=== PATIENT | female | born 1950 | race Caucasian/White ===

== ENCOUNTER 2018-03-08 23:36 | Observation (INO) | payer OTHER ==
[2018-03-09] MEDS ORDERED: ONDANSETRON 4 MG/2 ML VIAL ONE (00:04)
[2018-03-09] MEDS ORDERED: NS 1,000 ML IV ONE (00:09)
[2018-03-09] MEDS ORDERED: ONDANSETRON 4 MG/2 ML VIAL IVP ONE (00:09)
[2018-03-09 00:17] LABS: PLATELET COUNT 249 10^3/uL (150-400)
[2018-03-09] MEDS ORDERED: KETOROLAC 15 MG/1 ML SDV IVP ONE (00:19)
[2018-03-09] MEDS ORDERED: FAMOTIDINE 20 MG/NACL 50 ML IV ONE (00:19)
--- NOTE | 2018-03-09 00:26 | EDPHY ---
H & P Stated Complaint: under R breast pain Time Seen by Provider: 03/08/18 23:46 HPI/ROS: HPI The patient presents with epigastric and right-sided upper abdominal pain which has been present for the last 1 hr and began after trying to sleep. The pain is sharp and radiates toward her back on the right-hand side. She had 1 episode of vomiting in the waiting room. Her pain has been constant and is moderate in severity. She has had intermittent episodes of heartburn though this feels more severe and different.. REVIEW OF SYSTEMS 10 systems were reviewed and negative with the exception of the elements mentioned in the history of present illness. PMHx: History of Alzheimer's dementia, status post hysterectomy Soc Hx: Here with her partner PHYSICAL General Appearance: Alert, no distress Eyes: Pupils equal and round no pallor or injection ENT, Mouth: Mucous membranes moist Respiratory: There are no retractions, lungs are clear to auscultation Cardiovascular: Regular rate and rhythm Gastrointestinal: Abdomen is soft and tender in the epigastrium without any rebound or guarding Neurological: A&O, moves all extremities Skin: Warm and dry, no rashes Musculoskeletal: Neck is supple non tender Extremities: symmetrical, full range of motion Psychiatric: Patient is oriented X 3, there is no agitation Source: Patient Exam Limitations: No limitations - Personal History Current Tetanus/Diphtheria Vaccine: Unsure Current Tetanus Diphtheria and Acellular Pertussis (TDAP): Unsure - Medical/Surgical History Hx Asthma: No Hx Chronic Respiratory Disease: No Hx Diabetes: No Hx Cardiac Disease: No Hx Renal Disease: No Hx Cirrhosis: No Hx Alcoholism: No Hx HIV/AIDS: No Hx Splenectomy or Spleen Trauma: No Other PMH: hysterectomy, abd surgeries for CA, memory loss, hypothyroid - Social History Smoking Status: Former smoker Constitutional: Initial Vital Signs Temperature (C) 37 C 03/08/18 23:52 Heart Rate 63 03/08/18 23:52 Respiratory Rate 16 03/08/18 23:52 Blood Pressure 118/45 L 03/08/18 23:52 O2 Sat (%) 98 03/08/18 23:52 O2 Delivery Mode Room Air Allergies/Adverse Reactions: Penicillins Allergy (Unknown, Verified 12/27/14 21:09) Edema of Extremities Home Medications: Medication Instructions Recorded [place] Thyroid 60 MG (RX) 12/29/14 Medical Decision Making - Diagnostics Imaging Results: Ultrasound right upper quadrant demonstrates 2 gallstones in the gallbladder neck with gallbladder wall thickening and sonographic Escalante's, discussed with Dr. Colon of Radiology. Imaging: Discussed imaging studies w/ charcoal unloader Radiologist, I viewed and interpreted images myself Differential Diagnosis: 67-year-old female presents with epigastric abdominal pain which radiates to her right upper quadrant and right back associated with nausea and vomiting. Differential diagnosis includes biliary colic, cholecystitis, gastritis. In the emergency department, labs were checked which were relatively unremarkable except for slightly elevated lipase. Patient had ongoing symptoms while here. She had a right upper quadrant ultrasound which did demonstrate gallstones in her gallbladder neck with dilated gallbladder and gallbladder wall thickening with sonographic Escalante's all concerning for early cholecystitis. I have ordered antibiotics. I have discussed the case with Dr. AMINTA Aragon the on-call surgeon who will admit the patient. I have updated the patient and her partner on the plan. - Data Points Laboratory Results: Laboratory Results 03/09/18 00:04 03/09/18 00:04 03/09/18 03/09/18 00:04 00:04 WBC 9.14 10^3/uL 10^3/uL (3.80-9.50) RBC 4.75 10^6/uL 10^6/uL (4.18-5.33) Hgb 14.2 g/dL g/dL (12.6-16.3) Hct 40.9 % % (38.0-47.0) MCV 86.1 fL fL (81.5-99.8) MCH 29.9 pg pg (27.9-34.1) MCHC 34.7 g/dL g/dL (32.4-36.7) RDW 12.6 % % (11.5-15.2) Plt Count 249 10^3/uL 10^3/uL (150-400) MPV 9.1 fL fL (8.7-11.7) Neut % (Auto) 70.0 % % (39.3-74.2) Lymph % (Auto) 20.5 % % (15.0-45.0) [place] % (Auto) 8.5 % % (4.5-13.0) Eos % (Auto) 0.5 % L % (0.6-7.6) Baso % (Auto) 0.3 % % (0.3-1.7) Nucleat RBC Rel Count 0.0 % % (0.0-0.2) Absolute Neuts (auto) 6.39 10^3/uL 10^3/uL (1.70-6.50) Absolute Lymphs (auto) 1.87 10^3/uL 10^3/uL (1.00-3.00) Absolute Monos (auto) 0.78 10^3/uL 10^3/uL (0.30-0.80) Absolute Eos (auto) 0.05 10^3/uL 10^3/uL (0.03-0.40) Absolute Basos (auto) 0.03 10^3/uL 10^3/uL (0.02-0.10) Absolute Nucleated RBC 0.00 10^3/uL 10^3/uL (0-0.01) Immature Gran % 0.2 % % (0.0-1.1) Immature Gran # 0.02 10^3/uL 10^3/uL (0.00-0.10) Sodium 139 mEq/L mEq/L (135-145) Potassium 4.2 mEq/L mEq/L (3.3-5.0) Chloride 105 mEq/L mEq/L (97-110) Carbon Dioxide 26 mEq/l mEq/l (22-31) Anion Gap 8 mEq/L mEq/L (8-16) BUN 28 mg/dL H mg/dL (7-23) Creatinine 0.6 mg/dL mg/dL (0.6-1.0) Estimated GFR > 60 Glucose 131 mg/dL H mg/dL (70-100) Calcium 9.7 mg/dL mg/dL (8.5-10.4) Total Bilirubin 1.0 mg/dL mg/dL (0.1-1.4) Conjugated Bilirubin 0.1 mg/dL mg/dL (0.0-0.5) Unconjugated Bilirubin 0.9 mg/dL mg/dL (0.0-1.1) AST 23 IU/L IU/L (14-46) ALT 19 IU/L IU/L (9-52) Alkaline Phosphatase 93 IU/L IU/L (38-126) Total Protein 6.5 g/dL g/dL (6.3-8.2) Albumin 4.0 g/dL g/dL (3.5-5.0) Lipase 353 IU/L H IU/L (23-300) Medications Given: Potassium Chloride/Dextrose/Sod Cl (D5w 1/2 Ns W/ 20 Kcl/L) 1,000 mls @ 100 mls /hr IV CONT CANDY Stop: 09/05/18 05:59 Last Admin: 03/09/18 05:45 Dose: 1,000 mls Discontinued Medications Sodium Chloride (Ns) 1,000 mls @ 0 mls/hr IV EDNOW ONE; Wide Open PRN Reason: Protocol Stop: 03/09/18 00:10 Last Admin: 03/09/18 00:10 Dose: 1,000 mls Famotidine/Sodium Chloride (Pepcid 20 Mg (Premix)) 50 mls @ 200 mls/hr IV EDNOW ONE Stop: 03/09/18 00:33 Last Admin: 03/09/18 00:39 Dose: 50 mls Ceftriaxone Sodium/Dextrose (Rocephin 1 Gm (Premix)) 50 mls @ 100 mls/hr IV EDNOW ONE PRN Reason: Protocol Stop: 03/09/18 01:59 Last Admin: 03/09/18 01:54 Dose: 50 mls Metronidazole/Sodium Chloride (Flagyl 500 Mg (Premix)) 100 mls @ 100 mls/hr IV EDNOW ONE PRN Reason: Protocol Stop: 03/09/18 02:29 Last Admin: 03/09/18 02:03 Dose: 100 mls Ketorolac Tromethamine (Toradol) 15 mg IVP EDNOW ONE Stop: 03/09/18 00:20 Last Admin: 03/09/18 00:37 Dose: 15 mg Ondansetron HCl (Zofran) 4 mg IVP EDNOW ONE Stop: 03/09/18 00:10 Last Admin: 03/09/18 00:10 Dose: 4 mg Departure - Departure Disposition: [facility] Inpatient Acute Clinical Impression: Cholecystitis, acute, Elevated lipase Condition: Fair Referrals: NONE *PRIMARY CARE P,. [Primary Care Provider] - As per Instructions
[2018-03-09] MEDS ORDERED: HYDROmorphone HCL 0.5 MG/0.5 ML SYR IVP PRN (05:31)
[2018-03-09] MEDS ORDERED: ONDANSETRON 4 MG/2 ML VIAL IVP PRN ×3 (05:31→12:23)
[2018-03-09] MEDS ORDERED: D5W 1/2 NS W/ 20 KCl/L 1,000 ML IV SCH (06:00)
--- NOTE | 2018-03-09 07:09 | PDGENHP ---
History & Physical Chief Complaint: ruq pain History of Present Illness: female with ruq pain since last night/ no prior episodes/ lfts ok/ us shows stone impacted in neck of GB. admit for lap reza Pertinent Past, Social, Family History: phx: hysterectomy, early alsheimers, hypothyroid. meds thyroid, alsheimer med. all ? pcn. ros - 10 pt review. fam hx noncontributory Relevant Physical Exam: gen healthy 67 female in no acute distress, afebrile. heent: nonicteric, perrla,no adenopathy, supple. chest clear. cor rr. abd: soft, tender ruq, no masses. extrem full rom and pulses. neuro physiologic, symmetric. psych alert, oriented, cooperative Cardiorespiratory Assessment: imp: acute cholecystitis. Plan: lap reza, risks and options fully discussed
[2018-03-09] MEDS ORDERED: LR 1,000 ML IV ONE ×2 (09:00→10:19)
[2018-03-09] MEDS ORDERED: BUPIVACAINE 0.5% 30 ML SDV ONE (10:08)
[2018-03-09] MEDS ORDERED: HEPARIN 1000 UNIT/1 ML MDV ONE ×2 (10:08→10:39)
[2018-03-09] MEDS ORDERED: ceFAZolin 1 GM/5 ML SYR ONE (10:09)
[2018-03-09] MEDS ORDERED: PROPOFOL 200 MG/20 ML VIAL ONE (10:43)
[2018-03-09] MEDS ORDERED: fentaNYL 250 MCG/5 ML INJ ONE (10:43)
[2018-03-09] MEDS ORDERED: DEXAMETHASONE 4 MG/ML VIAL ONE ×2 (10:45)
[2018-03-09] MEDS ORDERED: RANITIDINE 50 MG/2 ML VIAL ONE (10:45)
--- NOTE | 2018-03-09 10:45 | PDANEPAE ---
ANE Past Medical History - Pulmonary History Hx Oxygen in Use at Home: No Hx Sleep Apnea: No Sleep Apnea Screening Result - Last Documented: Negative - Endocrine History Hx Diabetes: No - Chronic Pain History Chronic Pain: No ANE Review of Systems Review of Systems: ANE Patient History - Allergies Allergies/Adverse Reactions: Penicillins Allergy (Unknown, Verified 12/27/14 21:09) Edema of Extremities - Home Medications Home Medications: Levothyroxine [Synthroid 50 mcg (*)] 50 mcg PO DAILY06 12/29/14 [Last Taken Unknown] Galantamine Hydrobromide [Razadyne 8 MG (*)] 8 mg PO BIDMEAL 03/09/18 [Last Taken Unknown] - NPO status NPO Since - Liquids (Date): 03/09/18 NPO Since - Liquids (Time): 00:00 NPO Since - Solids (Date): 03/09/18 NPO Since - Solids (Time): 00:00 - Smoking Hx Smoking Status: Former smoker ANE Labs/Vital Signs - Labs Result Diagrams: 03/09/18 00:04 03/09/18 00:04 - Vital Signs Blood Pressure: 107/62 Heart Rate: 56 Respiratory Rate: 17 O2 Sat (%): 95 Height: 170.18 cm Weight: 63.502 kg ANE Physical Exam - Airway Neck exam: decreased ROM Mallampati Score: Class 3 Mouth exam: poor dentition - Pulmonary Pulmonary: no respiratory distress - Cardiovascular Cardiovascular: regular rate and rhythym - ASA Status ASA Status: III ANE Anesthesia Plan Anesthesia Plan: general endotracheal anesthesia
[2018-03-09] MEDS ORDERED: ROCURONIUM 100 MG/10 ML VIAL ONE (10:46)
[2018-03-09] MEDS ORDERED: LIDOCAINE 2% 100 MG/5 ML SYR ONE (10:46)
[2018-03-09] MEDS ORDERED: fentaNYL 100 MCG/2 ML INJ IVP PRN ×2 (10:55→12:23)
[2018-03-09] MEDS ORDERED: NALOXONE HCL 0.4 MG/ML INJ IVP PRN ×2 (10:55→12:23)
[2018-03-09] MEDS ORDERED: ALBUTEROL 3 ML DEYVIAL IH PRN ×2 (10:55→12:23)
--- NOTE | 2018-03-09 11:30 | ASMTCASEMG ---
Living Arrangements What is your living Answers: Alone arrangement? Who do you live with? Type Of Residence What kind of residence do Answers: Apartment you live in? Discharge Plan Comments Coordination Status Comments Notes: Pt is a 67 y/o female admitted for cholecystitis. Pt went to surgery w/ Dr. Aragon to remove gallstones. OT has been ordered and pending recommendations. Needs are TBD at this time. CM to follow. Plan: TBD Date Signed: 03/09/2018 11:29 AM Electronically Signed By:MERCEDES Acosta
[2018-03-09] MEDS ORDERED: SUGAMMADEX SODIUM 200 MG/2 ML VIAL IVP ONE (11:53)
--- NOTE | 2018-03-09 12:15 | POSTOPPROG ---
Post Op Note Date of Operation: 03/09/18 Surgeon: Lon Aragon Lacrosse Coach: Regina Rivas Anesthesiologist: Tony Bahena Anesthesia: GET(General Endotracheal) Pre-op Diagnosis: cholelithiasis, cholecystitis Post-op Diagnosis: same Procedure: lap reza Findings: gallstones, distended GB, edema Inf/Abcess present in the surg proc area at time of surgery?: No EBL: 50-100 Complications: none Specimen(s): gallbladder to pathology
--- NOTE | 2018-03-09 12:22 | POSTANESTH ---
Post Anesthetic Evaluation Cardiovascular Status: Similar to Pre-Op Cond Respiratory Status: Similar to Pre-op Cond. Level of Consciousness/Mental Status: Mildly Sleepy, Arousable Pain Control: Adequate, Prn Tx Ordered Nausea/Vomiting Control: Adequate, Prn Tx Ordered Complications Possibly Related to Anesthesia: None Noted
[2018-03-09] MEDS ORDERED: fentaNYL 100 MCG/2 ML INJ ONE (12:28)
--- NOTE | 2018-03-09 12:56 | GOP ---
DATE OF OPERATION: 03/09/2018 SURGEON: Lon Aragon MD PREOPERATIVE DIAGNOSIS: Acute cholecystitis. POSTOPERATIVE DIAGNOSIS: Acute cholecystitis. PROCEDURE PERFORMED: Laparoscopic cholecystectomy. FINDINGS: Patient was found to have a hydrops of the gallbladder with a single stone impacted in the neck of the gallbladder. She had small ducts. There were no significant adhesions to the gallbladd er. The gallbladder wall was quite thick and inflamed and markedly distended. DESCRIPTION OF PROCEDURE: The patient was taken to the operating room where she received a satisfact ory general endotracheal anesthesia by Dr. Bahena. She was placed in the supine position, prepped and draped in usual sterile fashion. Epigastric incision was made. A Veress needle inserted. Pneum operitoneum was established. Trocar was introduced. Laparoscope introduced. Good visualization was obtained. Three other trocars were placed in the upper abdomen under direct vision. The gallbladde r was then elevated up. The cystic triangle was carefully exposed and dissected free. The cystic du ct and cystic artery were isolated. A good clear view was established. There were both multiply hem oclipped and divided with care to avoid injury to the common bile duct. The peritoneum of the gallbl adder was incised. The gallbladder was dissected free in the bed and hepatic fossa and extracted thr ough the upper midline port site. Hemostasis was assured with electrocautery. The wound was copious ly irrigated. Hemostasis was assured. The trocar was removed under direct vision. Trocar sites wer e closed with 0 Vicryl for the fascia and 4-0 Monocryl subcuticular stitch for the skin. All layers infiltrated with 0.5% Marcaine. Blood loss negligible. No complications. Taken to recovery room in good condition. /[id number]/MODL
[2018-03-09] MEDS: GALANTAMINE HBr 8 MG TAB PO SCH (17:08)
[2018-03-09] MEDS: HYDROCODONE/APAP 5/325 TAB PO PRN ×2 (17:14→21:19)
[2018-03-10] MEDS: HYDROCODONE/APAP 5/325 TAB PO PRN ×3 (05:20→14:15)
[2018-03-10] MEDS ORDERED: LEVOTHYROXINE 50 MCG TAB PO SCH (06:00)
--- NOTE | 2018-03-10 08:57 | SOAPPROG ---
SOAP Progress Note Assessment/Plan: Assessment/Plan: 67 Y F s/p lap reza. Also, Alzheimer's. Wounds ok. Tolerating diet. Urinary retention. Straight cath now, and try to void. Don't recommend going home with ro 2/2 alzheimer's--concerned she'll pull it out. Dispo: pending resolution of urinary retention. S: remembers she had surgery but not what for. O: alert, nad, confused/forgetful at baseline ctab rrr abd soft inc cdi 03/10/18 08:55 Objective: Vital Signs Temp Pulse Resp BP Pulse Ox 37.3 C 72 16 103/50 L 92 03/10/18 07:01 03/10/18 07:01 03/10/18 07:01 03/10/18 07:01 03/10/18 07:01 03/09/18 03/10/18 03/11/18 05:59 05:59 05:59 Intake Total 1200 920 Output Total 220 Balance 1200 700 ICD10 Worksheet Patient Problems: Problems Problem Status Onset Cholecystitis, acute Acute Elevated lipase Acute
[2018-03-10] MEDS: GALANTAMINE HBr 8 MG TAB PO SCH (09:35)
[2018-03-10 11:21] VITALS: BP 117/69
--- NOTE | 2018-03-10 13:14 | ASMTCMCOM ---
CM Note CM Note Notes: Pts case discussed w/ TY [place]. Pt will d/c without any needs. CM available for changes. Plan: Independent Date Signed: 03/10/2018 01:13 PM Electronically Signed By:MERCEDES Acosta
--- NOTE | 2018-03-10 13:15 | ASMTLACE ---
LACE Length of stay for Answers: 1 day current admission Acuity / Level of Answers: No Care: Did the patient have an inpatient admission? Comorbidities - select Answers: Dementia all that apply Other Notes: Hypothyroid # of Emergency department Answers: 1-2 visits in the last 6 months Score: 6 Date Signed: 03/10/2018 01:14 PM Electronically Signed By:MERCEDES Acosta
== END 2018-03-10 14:15 | disposition home or self-care (01) ==
LOC: F3E 03-09 02:49
PROVIDERS: ADMIT Surgery; ATTEND Surgery
PROC: 0FT44ZZ Resection of Gallbladder, Percutaneous Endoscopic Approach (ICD-10-PCS; principal; 2018-03-08)
DX: K80.10 Calculus of gallbladder with chronic cholecystitis without obstruction (principal); E86.9 Volume depletion, unspecified; E03.9 Hypothyroidism, unspecified; G30.0 Alzheimer's disease with early onset; F02.80 Dementia in other diseases classified elsewhere, unspecified severity, without behavioral disturbance, psychotic disturbance, mood disturbance, and anxiety; R33.9 Retention of urine, unspecified
CPT/HCPCS: 47562; 51701; 76705; 88304; 96365; 96367; 96368; 96375; 96376; 99285; G0378; J0690; J0696; J1100; J1170; J1885; J2001; J2405; J2704; J2780; J3010